=== PATIENT | female | born 1990 ===

== ENCOUNTER 2017-07-24 11:13 | Emergency (ER) | payer OTHER ==
[2017-07-24 11:19] VITALS: BMI 31.8
[2017-07-24 12:00] LABS: BASO % 0.5 % (0.0-2.0); EOS # 0.1 K/uL (0.0-0.7); EOS % 0.7 % (0.0-4.0); HEMATOCRIT 38.2 % (34.0-47.0); LYMPH # 2.3 K/uL (1.0-4.3); LYMPH % 27.3 % (20.0-40.0); MEAN CELL VOLUME 84.4 fL (81.0-99.0); MEAN CORPUSCULAR HEMOGLOBIN 28.2 pg (27.0-31.0); MEAN CORPUSCULAR HGB CONC 33.4 g/dL (33.0-37.0); MEAN PLATELET VOLUME 7.1 fL (7.2-11.7); MONO # 0.9 K/uL (0.0-0.8); MONO % 10.1 % (0.0-10.0); NRBC % 0.1 % (0.0-2.0); WHITE BLOOD COUNT 8.6 K/uL (4.8-10.8)
[2017-07-24 12:13] LABS: RBC URINE < 1 /hpf (0-3); URINE BACTERIA RARE (<OCC); URINE BILIRUBIN NEGATIVE (NEGATIVE); URINE BLOOD NEGATIVE (NEGATIVE); URINE COLOR Yellow (YELLOW); URINE GLUCOSE (UA) NORMAL (Normal); URINE KETONE NEGATIVE (NEGATIVE); URINE LEUKOCYTE ESTERASE NEG Leu/uL (Negative); URINE PROTEIN NEGATIVE (NEGATIVE); URINE UROBILINOGEN NORMAL mg/dL (0.2-1.0); WBC URINE < 1 /hpf (0-5)
--- NOTE | 2017-07-24 12:19 | C.PDOC ---
History Of Present Illness 27 y/o female whom is 6 weeks presents to the ED c/o low abdominal pain. The patient denies nausea, vomiting, vaginal bleeding, headaches, and dizziness. Time Seen by Provider: 07/24/17 11:21 Chief Complaint (Nursing): Abdominal Pain History Per: Patient History/Exam Limitations: language barrier Onset/Duration Of Symptoms: Hrs Current Symptoms Are (Timing): Still Present Location Of Pain/Discomfort: Suprapubic Associated Symptoms: Nausea. denies: Fever, Chills, Vomiting, Diarrhea Recent travel outside of the [place]: No Additional History Per: Patient Para: 1 Past Medical History Reviewed: Historical Data, Nursing Documentation, Vital Signs Vital Signs: Last Vital Signs Temp 98.0 F 07/24/17 14:08 Pulse 84 07/24/17 14:08 Resp 20 07/24/17 14:08 BP 123/84 07/24/17 14:08 Pulse Ox 99 07/24/17 14:21 - Medical History PMH: No Chronic Diseases Surgical History: No Surg Hx Family History: States: No Known Family Hx - Social History Hx Alcohol Use: No Hx Substance Use: No - Immunization History Hx Tetanus Toxoid Vaccination: No Hx Influenza Vaccination: No Hx Pneumococcal Vaccination: No Review Of Systems Except As Marked, All Systems Reviewed And Found Negative. Constitutional: Negative for: Fever, Chills Respiratory: Negative for: Cough, Shortness of Breath Gastrointestinal: Positive for: Nausea, Abdominal Pain. Negative for: Vomiting , Diarrhea, Constipation Genitourinary: Negative for: Vaginal Discharge, Vaginal Bleeding Physical Exam - Physical Exam Appears: Non-toxic, No Acute Distress Skin: Warm, Dry Head: Atraumatic, Normacephalic Eye(s): bilateral: PERRL Oral Mucosa: Moist Neck: Supple Chest: Symmetrical Cardiovascular: Rhythm Regular Gastrointestinal/Abdominal: Soft, Tenderness (suprapubic ), No Guarding, No Rebound Pelvic: No Vaginal Bleeding, No Vaginal Discharge Extremity: Normal ROM, Capillary Refill (2<sec.) Neurological/Psych: Oriented x3, Normal Speech, Normal Cognition Gait: Steady ED Course And Treatment - Laboratory Results Result Diagrams: 07/24/17 11:52 07/24/17 11:52 Lab Interpretation: Normal Urine POC: Positive O2 Sat by Pulse Oximetry: 99 (RA) Pulse Ox Interpretation: Normal - CT Scan/US No standard instances Other Rad Studies (CT/US): Read By Radiologist, Radiology Report Reviewed CT/US Interpretation: FINDINGS: UTERUS: Gestational sac: Single intrauterine gestation. Heart rate: 108 bpm. age (Ultrasound estimated): 6 weeks 0 days, which agrees with LMP derived dates. Yumiko-gestational hemorrhage : Likely implantation related hemorrhage is seen in the inferior peripheral margins of the decidual reaction. Date of delivery (Ultrasound estimated) : . Uterus measures 8.0 x 4.7 x 4.7 cm. Normal in size and appearance. CERVIX: Long and closed. No cervical abnormality seen. RIGHT OVARY: Measures 3.0 x 1.5 x 2.4 cm. No mass lesion. Normal flow. LEFT OVARY: Measures 3.2 x 2.3 x 2.1 cm. No solid mass. Normal flow. FREE FLUID: None. OTHER FINDINGS: None. IMPRESSION: Single viable intrauterine gestation identified with average of the ultrasonic age of 6 weeks 0 days and heart activity 108. Ultrasound dates agree with LMP derived dates. Small implantation related hemorrhage is seen at the inferior margins of the decidual reaction. Clinical and sonographic follow-up are advised. Progress Note: Upon reassessment the patient is afebrile. On re-evaluation abdomen soft non-tender Reassessment Condition: Improved Medical Decision Making Medical Decision Making: Pelvic US was given. Disposition Counseled Patient/Family Regarding: Studies Performed, Diagnosis, Need For Followup - Disposition Referrals: [facility] [Outside] [email or web address] [Outside] Disposition: HOSPITALIZED Disposition Time: 14:20 Condition: STABLE Additional Instructions: Follow up with draw bench operator helper Prescriptions: Vit No.126/Iron/Folic [Classic Tablet] 1 each PO DAILY #30 tablet Instructions: Abdominal Pain in (ED) Forms: [employer] (Hungarian) Print Language: CZECH - POA Present On Arrival: None - Clinical Impression Clinical Impression: Abdominal pain, - PA / [employer] SET UP OPERATOR / Resident Statement MD/DO has examined the patient and agrees with the treatment plan. - Scribe Statement The provider has reviewed the documentation as recorded by the Scribe Samina Simmons All medical record entries made by the Scribe were at my direction and personally dictated by me. I have reviewed the chart and agree that the record accurately reflects my personal performance of the history, physical exam, medical decision making, and the department course for this patient. I have also personally directed, reviewed, and agree with the discharge instructions and disposition.
[2017-07-24 12:25] LABS: BLOOD UREA NITROGEN 15 mg/dL (7-17); CALCIUM 8.8 mg/dl (8.6-10.4); CARBON DIOXIDE 28 mmol/L (22-30); CHLORIDE 102 mmol/L (98-107); GFR AFRICAN-AMERICAN > 60; GLUCOSE,RANDOM 90 mg/dL (65-105); POTASSIUM 4.3 mmol/L (3.6-5.2); SODIUM 139 mmol/L (132-148)
[2017-07-24 14:09] VITALS: BP 123/84; PULSE 84; RESP 20; TEMP 98
--- NOTE | 2017-07-24 14:13 | US ---
PROCEDURE: OB Pelvic Ultrasound HISTORY: bleeding ; last which appears recorded 06/09/2017 suggesting an estimated gestational age of 6 weeks 3 days. COMPARISON: None available. Ultrasonography of was performed using transabdominal and transvaginal technique. FINDINGS: UTERUS: Gestational sac: Single intrauterine gestation. Heart rate: 108 bpm. age (Ultrasound estimated): 6 weeks 0 days, which agrees with LMP derived dates. Yumiko-gestational hemorrhage: Likely implantation related hemorrhage is seen in the inferior peripheral margins of the decidual reaction. Date of delivery (Ultrasound estimated) : 03/16/2018 Uterus measures 8.0 x 4.7 x 4.7 cm. Normal in size and appearance. CERVIX: Long and closed. No cervical abnormality seen. RIGHT OVARY: Measures 3.0 x 1.5 x 2.4 cm. No mass lesion. Normal flow. LEFT OVARY: Measures 3.2 x 2.3 x 2.1 cm. No solid mass. Normal flow. FREE FLUID: None. OTHER FINDINGS: None. IMPRESSION: Single viable intrauterine gestation identified with average of the ultrasonic age of 6 weeks 0 days and heart activity 108. Ultrasound dates agree with LMP derived dates. Small implantation related hemorrhage is seen at the inferior margins of the decidual reaction. Clinical and sonographic follow-up are advised.
[2017-07-24 14:18] VITALS: O2SAT 99
== END 2017-07-24 14:33 | disposition home or self-care (01) ==
LOC: C.ER 11:13
DX: O26.891 Other specified pregnancy related conditions, first trimester (principal); Z3A.01 Less than 8 weeks gestation of pregnancy; R10.30 Lower abdominal pain, unspecified